=== PATIENT | female | born 1970 | race African-American/Black ===

== ENCOUNTER 2020-03-24 15:15 | Outpatient (CLI) | payer OTHER, SELFPAY ==
--- NOTE | ~2020-03-24 | MM_ITS ---
EXAMINATION: MM screening anitra BI w humaira HISTORY: Screening mammogram TECHNIQUE: Craniocaudal and mediolateral oblique 3-D tomosynthesis images were obtained and synthetic 2-D images were generated. CAD analysis was submitted and interpreted. COMPARISON: No prior mammogram is available for comparison at this institution. BREAST PARENCHYMAL COMPOSITION: There are scattered areas of fibroglandular density. FINDINGS: RIGHT BREAST: An asymmetry is present in the middle third of the breast 9 cm from the nipple on the m ediolateral oblique view. LEFT BREAST: There is no evidence of suspicious mass, calcification, or architectural distortion to s uggest malignancy. IMPRESSION: 1. Right breast asymmetry on the mediolateral oblique view which may represent the patient's baseline however no comparison is currently available. 2. Comparison with prior mammograms is necessary. BI-RADS Category 0: Incomplete: Needs comparison with prior mammograms. Reviewed, dictated and finalized at location A.
== END 2020-03-24 15:16 | disposition home or self-care (01) ==
LOC: ANHIMG 15:18
PROVIDERS: PCP Family Medicine; Visit Provider Student in an Organized Health Care Education/Training Program
DX: Z12.31 Encounter for screening mammogram for malignant neoplasm of breast (principal); R92.8 Other abnormal and inconclusive findings on diagnostic imaging of breast
CPT/HCPCS: 77063; 77067

== ENCOUNTER 2022-07-07 12:42 | Outpatient (CLI) | payer OTHER, SELFPAY ==
--- NOTE | ~2022-07-07 | US_ITS ---
US thyroid INDICATION: Nontoxic single thyroid nodule TECHNIQUE: Real-time sonographic images of the thyroid gland were obtained. COMPARISON: No prior studies for comparison. FINDINGS: The right thyroid lobe measures 3.6 x 1.5 x 1.4 cm. The left thyroid lobe measures 3.5 x 1 .4 x 1.1 cm. There is normal echotexture and echogenicity throughout the thyroid gland. In the left l obe there is a 1.3 x 1.1 x 0.9 cm nodule which is mostly solid, hypoechoic, wider than tall, ill-defi jesús margins and no echogenic foci, TR 4. Normal vascular flow is present. IMPRESSION: 1. Left thyroid nodule measuring up to 1.3 cm, TR 4. This does not meet sonographic criteria for bio psy. Recommend follow-up ultrasound in 12 months. Reviewed, dictated and finalized at location A. STRIPPER IMPRESSION: 1. Left thyroid nodule measuring up to 1.3 cm, TR 4. This does not meet sonogr aphic criteria for biopsy. Recommend follow-up ultrasound in 12 months.
== END 2022-07-07 12:43 | disposition home or self-care (01) ==
PROVIDERS: PCP Family Medicine; Visit Provider Family Medicine
DX: E04.1 Nontoxic single thyroid nodule (principal)
CPT/HCPCS: 76536

== ENCOUNTER 2023-08-14 16:07 | Outpatient (CLI) | payer OTHER, SELFPAY ==
--- NOTE | ~2023-08-14 | US_ITS ---
Thyroid ultrasound. Clinical History: Thyroid nodule COMPARISON: 07/07/2022 Findings: Real-time sonography of the thyroid gland was performed. The right lobe measures 4.4 x 1.2 x 1.6 cm. The left lobe measures 4.3 x 1.1 x 1.4 cm. The isthmus is 5 mm in AP diameter. At the left lower pole, there is a 1.2 cm hypoechoic solid nodule (TI-RADS 4). Impression: 1.2 cm left lower pole thyroid nodule, probably without significant change from prior exam Reviewed, dictated and finalized at location . S ADVISOR Impression: 1.2 cm left lower pole thyroid nodule, probably without significant change from prior exam
== END 2023-08-14 16:08 | disposition home or self-care (01) ==
PROVIDERS: PCP Family Medicine; Visit Provider Physician Assistant
DX: E04.1 Nontoxic single thyroid nodule (principal)
CPT/HCPCS: 76536